=== PATIENT | female | born 1970 | race Two or more races ===

== ENCOUNTER 2017-11-05 12:52 | Emergency (ER) | payer SELFPAY ==
[2017-11-05 13:27] VITALS: BP 129/80; PULSE 86; RESP 18; TEMP 97.6; O2SAT 99
--- NOTE | 2017-11-05 14:05 | ED PDOC ---
HPI: Headache Time Seen by Provider: 11/05/17 13:29 Chief Complaint (Nursing): Headache Chief Complaint (Provider): Headache History Per: Patient History/Exam Limitations: no limitations Onset/Duration Of Symptoms: Days (x 2), Worse Since (7 hours prior to arrival ) Current Symptoms Are (Timing): Still Present Quality: "Pain" Associated Symptoms: Nausea Additional Complaint(s): 47 year old female presents to the ED with complains of headache and nausea beginning 2 days ago. Patient reports pain is felt on the top of her head and does not radiate to anywhere else in the body. Patient states pain feels like a sinus pressure of which she has had sinus infections in the past and got worse about 7 hours prior to arrival at the ED. Patient reports this headache is "the worst headache of her life". Patient was seen at Urgent Care for pain and was given antibiotics but was referred to the ED to get a CT head. PMD: None LMNP: 10/30/2017 Past Medical History Reviewed: Historical Data, Nursing Documentation, Vital Signs Vital Signs: Last Vital Signs Temp 97.6 F 11/05/17 13:24 Pulse 86 11/05/17 13:24 Resp 18 11/05/17 13:24 BP 129/80 11/05/17 13:24 Pulse Ox 99 11/05/17 13:24 - Medical History PMH: Hypothyroidism - Surgical History Surgical History: Appendectomy, - Family History Family History: States: Unknown Family Hx - Allergies Allergies/Adverse Reactions: Allergies Allergy/AdvReac Type Severity Reaction Status Date / Time No Known Allergies Allergy Verified 11/05/17 13:24 Review of Systems ROS Statement: Except As Marked, All Systems Reviewed And Found Negative Gastrointestinal: Positive for: Nausea Neurological: Positive for: Headache Physical Exam - Reviewed Nursing Documentation Reviewed: Yes Vital Signs Reviewed: Yes - Physical Exam Appears: Positive for: Well, Non-toxic, No Acute Distress Head Exam: Positive for: ATRAUMATIC, NORMAL INSPECTION, NORMOCEPHALIC Skin: Positive for: Normal Color Eye Exam: Positive for: EOMI, Normal appearance, PERRL Neck: Positive for: Normal Cardiovascular/Chest: Positive for: Regular Rate, Rhythm Respiratory: Positive for: CNT, Normal Breath Sounds Neurologic/Psych: Positive for: Alert, grievance manager II-XII, Oriented, Mood/Affect, Gait. Negative for: Motor/Sensory Deficits, Aphasia, Facial Droop - ECG O2 Sat by Pulse Oximetry: 99 (RA) Pulse Ox Interpretation: Normal Medical Decision Making Medical Decision Making: Time: 1409 Plan: -- Head CT w/o contrast -- ED Urine Test PReg (-) 1430 - Pt states pain was 9/10 but is now getting better and is 6/10. Pt reports taking a claritin today. Pt alert and oriented. Discussed risk/benefit of CT. Pt would like to go home and will return for any worsening symptoms. Scribe Attestation: Documented by Wil Jasso, acting as a scribe for Patsy Moreno PA-C. Provider Scribe Attestation: All medical record entries made by the Scribe were at my direction and personally dictated by me. I have reviewed the chart and agree that the record accurately reflects my personal performance of the history, physical exam, medical decision making, and the department course for this patient. I have also personally directed, reviewed, and agree with the discharge instructions and disposition. Disposition - Clinical Impression Clinical Impression: Headache - Patient ED Disposition Is Patient to be Admitted: No - Disposition Disposition: Routine/Home Disposition Time: 14:31 Condition: GOOD Instructions: Headache, Adult Forms: [facility] ([place])
== END 2017-11-05 14:34 | disposition home or self-care (01) ==
LOC: H.ER 12:52
DX: R51 Headache (principal); E03.9 Hypothyroidism, unspecified